=== PATIENT | female | born 1955 | race Caucasian/White ===

== ENCOUNTER 2018-10-21 11:24 | Emergency (ER) | payer BC ==
--- NOTE | 2018-10-21 11:43 | EDM.PDOC ---
ED HPI GENERAL MEDICAL PROBLEM - General Chief Complaint: Upper Extremity Injury/Pain Stated Complaint: PAIN IN BACK AND SHOULDERS Time Seen by Provider: 10/21/18 11:26 History Limitations: Reports: No Limitations - History of Present Illness INITIAL COMMENTS - FREE TEXT/NARRATIVE: Patient comes into the emergency department with plus scapular pain. Patient states that she has been seeing a chiropractor for intermittent shoulder and back pain. However yesterday she ended up slipping and falling landing on her knee in brace herself with her left arm she states that she noticed that her left shoulder area was tender after the fall. She denies having any issues with range of motion but does state that if she touches her shoulder region it is tender to touch. She did go the chiropractor and it was feeling better after the appointment. However today it has become more tender and she's having more muscle spasms in that that region. She denies any numbness or tingling, chest pain, jaw pain, or radiating pain, shortness of breath, dizziness, lightheadedness, blurred vision, loss of consciousness, or hitting her head during or after the original fall. Patient has had issues with muscle spasms in the past that she states it feels exactly like the other muscle spasms before. She is on blood thinners and was recently hospitalized with bleeding concerns. However she does not feel any of that is of concern. She has felt great and has not issues other than the muscle spasms. Onset: Sudden Quality: Reports: Throbbing Severity: Moderate Improves with: Reports: Immobilization Worsens with: Reports: Movement Associated Symptoms: Reports: No Other Symptoms - Related Data Home Meds: Home Meds Cyclobenzaprine [Flexeril] 10 mg PO TID PRN #15 tab 10/21/18 [Rx] Review of Systems - Review of Systems Review Of Systems: See Below Constitutional: Reports: No Symptoms Eyes: Reports: No Symptoms Ears: Reports: No Symptoms Nose: Reports: No Symptoms Mouth/Throat: Reports: No Symptoms Respiratory: Reports: No Symptoms GI/Abdominal: Reports: No Symptoms Genitourinary: Reports: No Symptoms Musculoskeletal: Reports: Shoulder Pain Skin: Reports: No Symptoms Neurological: Reports: No Symptoms ED EXAM, GENERAL - Physical Exam Exam: See Below Exam Limited By: No Limitations General Appearance: Alert, WD/WN, No Apparent Distress Eye Exam: Bilateral Eye: EOMI, PERRL Nose: Normal Inspection, Normal Mucosa Throat/Mouth: Normal Inspection, Normal Lips, Normal Teeth Head: Atraumatic, Normocephalic Neck: Normal Inspection, Supple, Non-Tender, Full Range of Motion Respiratory/Chest: No Respiratory Distress, Lungs Clear, No Accessory Muscle Use Cardiovascular: Normal Peripheral Pulses, Regular Rate, Rhythm Back Exam: Normal Inspection, Muscle Spasm (left scalpular region. pinpoint tenderness with muscle inflammation noted. No crepitis, redness, warmth, or ecchymosis noted. ROM and CMS intact. ) Extremities: Normal Inspection, Normal Range of Motion, No Pedal Edema, Normal Capillary Refill Neurological: Alert, Oriented Psychiatric: Normal Affect, Normal Mood Course - Orders/Labs/Meds Meds: Medications Discontinued Medications Generic Name Dose Route Start Last Admin Trade Name Freq PRN Reason Stop Dose Admin Orphenadrine Citrate 60 mg 10/21/18 11:35 Norflex IM 10/21/18 11:36 NOW STA Departure - Departure Time of Disposition: 12:00 Disposition: Home, Self-Care 01 Condition: Good Clinical Impression: Muscle strain of scapular region Qualifiers: Encounter type: initial encounter Laterality: left Qualified Code(s): S46.912A - Strain of unspecified muscle, fascia and tendon at shoulder and upper arm level, left arm, initial encounter - Discharge Information *PRESCRIPTION DRUG MONITORING PROGRAM REVIEWED*: Not Applicable *COPY OF PRESCRIPTION DRUG MONITORING REPORT IN PATIENT KENZIE: Not Applicable Prescriptions: Cyclobenzaprine [Flexeril] 10 mg PO TID PRN #15 tab PRN Reason: Pain Instructions: Muscle Strain Forms: ED Department Discharge Additional Instructions: 1. rest 2. Message the area of tenderness every hour for a few minutes 3. Place ice or heat over the area for approx 20 mins 3 times a day 4. Can take Tylenol as needed for discomfort 5. Use flexeril as needed for muscle spasms 6. Follow up with Chiropractor early next week 7. Call with any questions or concerns 8. Ensure you are not driving or operate any motor devices while using taking flexeril due to the delayed response time your body may have - Assessment/Plan Assessment:: 1. left scapular strain Plan: 1. Norflex IM injection in the ER 2. Flexeril script sent with the pt 3. Education regarding follow up provided 4. Pt advised to return as needed or if symptoms worsen 5. Pt also advised to follow up with chiropractor as needed to help with the muscle strain 6. All questions and concerns addressed prior to discharge.
== END 2018-10-21 12:13 | disposition home or self-care (01) ==
LOC: VM.ED 11:24
DX: S46.912A Strain of unspecified muscle, fascia and tendon at shoulder and upper arm level, left arm, initial encounter (principal); W01.0XXA Fall on same level from slipping, tripping and stumbling without subsequent striking against object, initial encounter
CPT/HCPCS: 96374; 99283; J2360

== ENCOUNTER 2019-02-26 14:38 | Inpatient (IN) | payer BC ==
[2019-02-26] MEDS ORDERED: Ondansetron 4 MG/2 ML SDV IV PRN (14:51)
[2019-02-26 16:20] LABS: ANION GAP 12.4 mmol/L (10-20)
[2019-02-26] MEDS ORDERED: Famotidine 20 MG Tab PO PRN ×2 (16:31→19:33)
[2019-02-26] MEDS ORDERED: Potassium Chloride 10 MEQ Tab.ER PO ONE (17:04)
[2019-02-26] MEDS: Pantoprazole 40 MG Vial IVPUSH SCH (17:26)
[2019-02-26] MEDS ORDERED: Gabapentin 100 MG Cap PO PRN (19:26)
[2019-02-26] MEDS ORDERED: Melatonin 3 MG Tab PO PRN (19:31)
[2019-02-26] MEDS: Propranolol 20 MG Tab PO SCH (19:56)
[2019-02-26] MEDS ORDERED: Magnesium Oxide 400 MG Tab PO SCH (20:00)
[2019-02-26] MEDS ORDERED: Gabapentin 300 MG Cap PO SCH (20:00)
[2019-02-26] MEDS ORDERED: Melatonin 3 MG Tab PO SCH ×2 (20:00)
[2019-02-26] MEDS ORDERED: Digoxin 125 MCG Tab PO SCH (20:00)
[2019-02-26] MEDS ORDERED: Zolpidem 5 MG Tab PO PRN (21:31)
[2019-02-27] MEDS: Sodium Chloride 0.9% 10 ML Syringe FLUSH PRN ×2 (00:26→05:48)
--- NOTE | 2019-02-27 03:15 | HP ---
CHIEF COMPLAINT: Black stools. HISTORY OF PRESENT ILLNESS: This is a 63-year-old female who had over the last month, dark stools once per day and some anemia. Hemoglobin had finally come up from the 7 range to over 8, but then since Tuesday, she had been feeling a little bit weaker. Having still a dark stool per day, but then explosive black stools this a.m. and 1 small formed black stool since. She came into the clinic for her routine labs. Hemoglobin was down to 6.9. INR was up to 4.3, which she does take for a mechanical mitral valve. She has not had any changes in medications or her Coumadin dose. She had sent a note to me, she was actually coming in for an echo today. She denies any symptoms like shortness of breath. She has had a hard time sleeping, but that has been going on for a while. She goes to sleep with melatonin, but then is up the rest of the night after about 15 minutes. She even took some Benadryl last night. She has not felt any nausea, and in the past when she had GI bleeding, she had nausea. Back in 2015, she had small bowel erosions. She has been on Zantac. She has been on Protonix 20 mg twice daily. In January, she did increase her Bumex up to 3 mg twice daily to help with her edema and her leg swelling has been better. Weight is down 6 pounds since 12 days ago. She had an echo last 09/2017 that showed her EF to be 60%. She also had some clinic visits showing some hemolysis earlier. ALLERGIES: Include latex, rash and itching; oxycodone, face and chest flushing; Tylenol, hives and wheezing; verapamil, anaphylaxis; and ibuprofen, messes with her hiatal hernia and stomach ulcers. MEDICATIONS: Her medication list is reviewed and does include Bumex 3 mg twice daily, digoxin 125 mcg daily, potassium 20 mEq daily, Protonix 20 mg twice daily, Neurontin 300 mg at bedtime and 100 mg 2 times a day as needed for headache, Aldactone 25 mg daily, levothyroxine 100 mcg daily, Inderal 80 mg twice daily, Zantac 150 at bedtime as needed, multivitamin with zinc, calcium, vitamin C, Biofreeze, melatonin, and Imitrex p.r.n. Coumadin with her home dose being recommended to hold today from the anticoagulation clinic; Tuesday, , and Tuesday, she will take 2.5 mg, and she will take 1.25 mg the rest of the week. Amoxicillin as needed for dental work. Iron, ferrous sulfate 325 mg every other day, but on hold since 02/14. Kenalog cream if needed, and magnesium 250 mg at bedtime. PAST MEDICAL HISTORY: Quite complex, does include: 1. Anemia. 2. Atrophic vaginitis. 3. Chronic atrial fibrillation. 4. Essential hypertension. 5. Previous gastrointestinal hemorrhage as stated above. 6. Graves disease status post radioactive treatments in the past, now with hypothyroidism. 7. Hepatitis C, possibly from blood transfusions back in the with her heart surgery. She has been treated with Epclusa in 2017 with viral load undetectable. She had a lot of inflammation of the liver, but not fibrosis. 8. History of mitral valve replacement since having rheumatic fever at age 15. First replacement was in 1979. Then, due to leak, she had a buttress suture correction in 1983 and then subsequently went mechanical prosthesis in 1983, and then in 1984, she had her final valve replacement with a Plummer- Nguyen valve. 9. She has hypokalemia. 10.Long-term anticoagulation. 11.Nocturnal hypoxia. 12.Osteopenia. 13.Hyperlipidemia. 14.Pulmonary hypertension. 15.Restless legs syndrome for which she takes Neurontin. 16.Some aortic stenosis, was mild to moderate. 17.Previous subdural or subarachnoid bleeding earlier this year, resolved. She has not had any transfusions in the last 3 months. PAST SURGICAL HISTORY: Multiple heart surgeries as stated above. Multiple endoscopies, 2012 and 2016. She has had a push enteroscopy and capsule endoscopy. She has had a tubal ligation. She has had hysterectomy and oophorectomy. The patient had a colonoscopy, last in 2016. SOCIAL HISTORY: The patient is . She is a retired teacher. She moved to [place] with her from the [facility]. She is a nonsmoker. She quit drinking wine in mid January. She just drinks a minimal amount, but she thought that this would help with her bleeding. FAMILY HISTORY: The patient's parents are both , they both had colorectal cancer. She has a sister with diabetes, another with multiple sclerosis, a brother with heart problems, another brother with stroke. REVIEW OF SYSTEMS: General: The patient has had some weight loss due to diuresis. She has felt weak, but not dizzy. HEENT: No sore throat. No trouble swallowing. Cardiac: She has not had any chest pain or palpitations. Respiratory: No cough; a couple weeks ago did have a cough. Abdomen: She denies that she has had any abdominal discomfort, but has had the black stools. Otherwise, all systems reviewed and found to be negative unless otherwise stated. PHYSICAL EXAMINATION: Vital Signs: On her admission to the hospital, her vital signs did show a weight of 52.1 kg, temperature 97.6, pulse 56, blood pressure 117/40, respiratory rate 16, and O2 of 100% on room air. General: She is in no acute distress. Heart: Irregular with positive mechanical clicks. Her murmur is appreciated. Lungs: Her lung sounds clear to auscultation bilaterally without crackles or wheezes. Abdomen: Positive bowel sounds. Soft, nondistended, nontender. Extremities: Warm and dry. Just very trace edema. Mental Status: She is alert. She is orientated x3. Skin: Overall, her skin does not appear overly pale, but she reports she is wearing makeup, and she was recently tanned. LABORATORY WORK: Hemoglobin repeated, that was done this morning on admission to the hospital, around 2:30, was 6.1. Her white count 7.3, platelets 167. Sodium 141; potassium 3.4; chloride 99; bicarb 33; BUN 58; creatinine 1.5, which is near her recent baseline, which had been elevated up to 1.5 in the clinic, but prior to that she had been 1.7; glucose 147; calcium 8.6; bilirubin 1.9; AST 85; ALT 17; alkaline phosphatase 64; LDH 1222; albumin 3.4. ASSESSMENT AND PLAN: 1. Acute blood loss anemia, possibly lower gastrointestinal bleed or even a small bowel bleed or upper gastrointestinal bleed. Difficult to tell at this point. Due to elevated INR, we avoided passing an NG tube. This has been a subacute bleed over the last month. We will type and cross the patient and transfuse her 2 units. Given her mechanical valve and the lack of further black stools, I will hold off on any fresh frozen plasma, but we will repeat her INR at 10:00 with her next hemoglobin. She is hemodynamically stable. She is on a beta-tano, which may mask some hypertension. We will repeat all lab work again in the morning. If the patient continues with active bleeding, we will need to transfer her for endoscopy. We are going to avoid any vitamin K unless she were to have severe bleeding. We will also place her on IV Protonix. 2. History of heart failure. I am going to go ahead and hold the Bumex. I will continue her Aldactone. We will monitor her closely. She does have diastolic heart failure. Her ejection fraction is 65%. 3. Mechanical mitral valve. Given supratherapeutic INR, I am going to go ahead and hold the Coumadin. 4. Restless legs syndrome. We will continue her Neurontin. Due to her insomnia, also have Ambien available p.r.n. in addition to her melatonin. 5. Atrial fibrillation. She is on digoxin. Rates are controlled. 6. Hypothyroidism. She will continue levothyroxine. 7. Hypokalemia. We will give her a dose of potassium. We will repeat electrolytes tomorrow. 8. Elevated bilirubin and evidence of hemolysis, probably due to her mechanical valve. We will transfuse her due to the gastrointestinal bleeding concerns, likely get a followup with Hematology as an outpatient. We are also working on [facility] referral for her as well. PLAN: At this point, the patient is admitted for observation care. We would like to transfuse her today, and if she is stable, she will be able to go home for outpatient followup for endoscopy tomorrow. If her condition worsened, she will be transferred to [place] for acute care, or if her stay is prolonged, we will probably place her on acute cares here. The patient is agreeable to this plan. For DVT prophylaxis, she is already therapeutic with Coumadin. She is a code level 1. Greater than 30 minutes spent on this admission process. LILIA: 02/26/2019 21:44:36 MODL: 02/27/2019 03:06:33 /[id number]
[2019-02-27] MEDS: Pantoprazole 40 MG Vial IVPUSH SCH (05:48)
[2019-02-27] MEDS ORDERED: Levothyroxine 100 MCG Tab PO SCH (07:00)
[2019-02-27 07:46] LABS: ANION GAP 10.3 mmol/L (10-20)
[2019-02-27] MEDS: Propranolol 20 MG Tab PO SCH (07:51)
[2019-02-27] MEDS ORDERED: Multivitamin, Stress Formula with Zinc Tab PO SCH (08:00)
[2019-02-27] MEDS ORDERED: Gabapentin 100 MG Cap PO SCH (08:00)
[2019-02-27] MEDS ORDERED: Spironolactone 25 MG Tab PO SCH (08:00)
[2019-02-27] MEDS ORDERED: Potassium Chloride 10 MEQ Tab.ER PO SCH (08:12)
[2019-02-27] MEDS ORDERED: Iopamidol 612 MG/ML 100 ML Bottle IVPUSH ONE (11:00)
--- NOTE | 2019-02-27 13:16 | CT ---
[id number] CT/CT Abdomen Pelvis W IV EXAM: ABDOMEN AND PELVIS CT WITH CONTRAST INDICATION: Gastrointestinal bleeding. COMPARISON: None. DISCUSSION: There is an apparent metallic object in the distal abdominal aorta measuring about 31 x 13 x 1 mm. In the imaged lower chest there is pectus excavatum. Prior sternotomy with partially imaged mitral valve prosthesis. Cardiomegaly. Small to moderate pleural effusion. The liver is heterogeneous in attenuation with lobular contours consistent with cirrhosis. There is evidence of portal hypertension including upper abdominal varices and mild splenomegaly with the spleen measuring 13.5 cm in length. Small volume ascites. Diffuse gallbladder wall thickening may relate to underlying liver disease, but ultrasound or HIDA scan could further evaluate if there is concern for cholecystitis. Vascular coils in the upper abdomen. A mild thick-walled appearance of the splenic flexure of the colon could be from incomplete distention, colitis or the patient's underlying liver disease. There are scattered colonic diverticula without evidence of diverticulitis. The pancreas, adrenal glands, kidneys, small bowel and appendix are normal in appearance. No free fluid. The osseous structures are unremarkable. IMPRESSION: 1. Apparent metallic foreign body within the distal abdominal aorta uncertain etiology. The surrounding aorta otherwise appears normal in appearance. 2. Cirrhosis with portal hypertension including upper abdominal varices, mild splenomegaly, and small ascites. 3. Gallbladder wall thickening likely relating to underlying liver disease. HIDA scan or ultrasound could provide further evaluation. 4. Mild wall thickening near the splenic flexure of the colon which could be from incomplete distention, underlying liver disease or focal colitis. Randy Krause MD 02/27/19 3049 Thank you for allowing us to participate in the care of your patient.
--- NOTE | 2019-02-27 19:35 | DISCH ---
PRIMARY DISCHARGE DIAGNOSES: 1. Acute blood loss anemia secondary to gastrointestinal bleeding, unknown source. 2. Supratherapeutic INR. 3. Chronic diastolic heart failure, ejection fraction 65%. 4. Mechanical mitral valve. 5. Restless legs syndrome, improved after blood transfusion. 6. Atrial fibrillation, on digoxin, rate controlled, paroxysmal. 7. Hypothyroidism, treated. 8. Hypokalemia, replaced orally. 9. Elevated LFTs and bilirubin with some element of hemolysis, but a previous history of hepatitis C treated. Concerned for underlying liver pathology given the findings on the CT scan and her overall complicated medical history. 10.Previous gastrointestinal bleeding, which would include a 2013 Dieulafoy lesion or actively bleeding arteriovenous malformation noted in the lesser curvature of the stomach requiring epinephrine injection with clips. The patient also had an admission in 2015 that required APC for esophagitis and then had a small ulcer and Dieulafoy lesion in the duodenum with cautery and clips, and then later required clips again for a small ulcer noted, but could not be stopped by cautery, an epinephrine, and decision was made that the patient was going to have an embolization for bleeding, which occurred with IR on to the pancreaticoduodenal artery arcade, and then later she had coil embolization to the superior and inferior pancreaticoduodenal arteries. She had a followup EGD then in later that same year. Given history of duodenal ulcer and Helicobacter pylori, she still had more biopsies taken and was recommended to continue on Protonix, which she has been taking 20 mg twice daily. Otherwise, she also has pulmonary hypertension. She has aortic stenosis. She has essential hypertension. She has had some insomnia. Echo performed yesterday showed an ejection fraction of 60% with her Plummer-Nguyen mechanical valve in place. There is some concern for hemolysis due to this valve. There was also some metallic material in her aorta. 11. Cirrhosis and portal hypertension REASON FOR ADMISSION: On the date of admission, this 63-year-old female who has had some black stools off and on over the last month did have a drop in hemoglobin into the 7s, but had recently returned up to 8.4, had a large black stool and a smaller black stool yesterday. Contacted the clinic, was not overly short of breath, but was feeling tired. Hemoglobin was 6.9. She was admitted, typed and crossed. By the time hemoglobin was repeated, she was down to 6.1, she got 2 units. She was up to 7.4 this morning, but repeat hemoglobin this afternoon was back down to 6.9, so another unit was ordered. INR was 4.3. We did not give her any vitamin K or FFP. It did come down to 3.5 today and she had no further melena during her stay. A decision was made to transfer her to [place] for further care. CT was done and did not show any abnormal masses, but did show the concern for some liver disease possibly due to her heart failure versus the hemolysis. Her LDH was about 1200. Renal function was moderate. Her creatinine was 1.4 on discharge. Her BUN was actually 60, so likely this is an upper source of GI bleeding. Bilirubin was 2.1, direct bilirubin 0.54, AST down from 85 to 72. The patient states she was feeling 1000 times better after the blood and actually quite hopeful to go home. However, given her complicated history, decision was made to transfer to [place] for further cares. The patient was upgraded to acute care status for the transfer. The patient also was given IV Protonix during her stay. Her Bumex was held, but she was continued on Aldactone and was given potassium supplements for her low potassium, which was 3.3 this morning. She also takes magnesium supplements. She was denying any chest pain or breathing problems during her stay. PHYSICAL EXAMINATION: Vital Signs: Discharging vitals; temperature 98.8, pulse 65, blood pressure 103/42, respiratory rate 16, O2 of 93% on room air. General: She is in no acute distress. Heart: Irregular rate and rhythm with systolic murmur and positive valvular click. Abdomen: Nondistended, but some mid epigastric tenderness, possibly a hernia in 1 of her previous drain sites from cardiac surgery. Otherwise, bowel sounds are active. The rest of the abdomen is nontender. Lungs: Clear to auscultation bilaterally without crackles or wheezes. Extremities: Warm and dry. She does have some trace edema. Mental Status: She is alert. She is orientated x3. She is answering questions appropriately. DISCHARGE/TRANSFER INSTRUCTIONS: She is going to [place] for further cares. Dr. Foster will accept the patient in transfer. MKA: 02/27/2019 17:32:31 MODL: 02/27/2019 19:26:22 /[id number]
== END 2019-02-27 17:45 | disposition short-term general hospital (02) | DRG 253 ==
LOC: VM.MS 14:44 → OBSVTOIN 16:17
PROVIDERS: ADMIT Internal Medicine; ATTEND Internal Medicine
PROC: 30233N1 Transfusion of Nonautologous Red Blood Cells into Peripheral Vein, Percutaneous Approach (ICD-10-PCS; principal; 2019-02-26)
DX: K92.2 Gastrointestinal hemorrhage, unspecified (principal); D62 Acute posthemorrhagic anemia; D68.2 Hereditary deficiency of other clotting factors; I50.32 Chronic diastolic (congestive) heart failure; I27.20 Pulmonary hypertension, unspecified; K76.6 Portal hypertension; I48.2 Chronic atrial fibrillation; I48.0 Paroxysmal atrial fibrillation; K74.60 Unspecified cirrhosis of liver; G25.81 Restless legs syndrome; E03.9 Hypothyroidism, unspecified; E87.6 Hypokalemia; I10 Essential (primary) hypertension; M85.80 Other specified disorders of bone density and structure, unspecified site; E78.5 Hyperlipidemia, unspecified; I35.0 Nonrheumatic aortic (valve) stenosis; Z95.2 Presence of prosthetic heart valve; Z79.899 Other long term (current) drug therapy; Z79.01 Long term (current) use of anticoagulants; Z88.5 Allergy status to narcotic agent; Z88.8 Allergy status to other drugs, medicaments and biological substances; Z86.19 Personal history of other infectious and parasitic diseases; Z91.040 Latex allergy status; Z79.890 Hormone replacement therapy
CPT/HCPCS: 36415; 36430; 74177; 80053; 82248; 83615; 83735; 85014; 85018; 85025; 85610; 86850; 86900; 86901; 86920; 86922; 94760; 96374; 96376; A9270-GY; C9113; G0378; P9016; Q9967

== ENCOUNTER 2019-03-11 07:50 | Emergency (ER) | payer BC ==
[2019-03-11] MEDS ORDERED: LORazepam 2 MG/ML SDV IM ONE (08:02)
[2019-03-11] MEDS ORDERED: Sodium Chloride 0.9% 10 ML Syringe FLUSH PRN (08:34)
[2019-03-11] MEDS ORDERED: Sodium Chloride 0.9% 1,000 ML IV SCH (08:45)
--- NOTE | 2019-03-11 08:47 | EDM.PDOC ---
ED HPI GENERAL MEDICAL PROBLEM - General Chief Complaint: General Stated Complaint: POSSIBLE REACTION Time Seen by Provider: 03/11/19 07:59 Source of Information: Reports: Patient History Limitations: Reports: No Limitations - History of Present Illness INITIAL COMMENTS - FREE TEXT/NARRATIVE: Pt. presents to ER with . Pt. states that she feels "anxious" and states that her "legs are restless". Pt. was hospitalized at [facility] in [place] and discharged on 02/27/19 with upper GI bleed. Pt. has a history of mechanical mitral valve and is anticoagulated with coumadin. states that the patient woke him in the night complaining of having "restless legs". Pt. denies any trauma to her head. No recent falls. She states that her hands and feet feel crampy and she generally feels weak and unwell. Denies any chest pain or shortness of breath. She has been afebrile and has not been complaining of any chills. Pt. appears to recently have had her bumex increased to 2 mg a day due to peripheral edema after she was fluid resuscitated with blood and fluids for her GI bleed. Pt. last HgB was 8.2-previously had been lower than 5. Pt. states that she was given ativan in the hospital but has not chronically been on either benzodiazepines or opiates. She denies any chest pain or shortness of breath. No difficulty with speech or ambulation. She offers no complaint, other than restless legs and anxiety. Onset: Today Onset Date: 03/11/19 Location: Reports: Generalized - Related Data Allergies Allergy/AdvReac Type Severity Reaction Status Date / Time acetaminophen [From Tylenol] Allergy Cannot Verified 03/11/19 07:57 Remember ibuprofen Allergy Other Verified 03/11/19 07:57 latex Allergy Other Verified 03/11/19 07:57 oxycodone Allergy Cannot Verified 03/11/19 07:57 Remember verapamil Allergy Anaphylactic Verified 03/11/19 08:03 Shock Home Meds: Home Meds Amoxicillin 500 mg PO DAILY PRN 02/26/19 [History] Ascorbic Acid [Vitamin C] 1,000 mg PO DAILY 02/26/19 [History] Bumetanide [Bumex] 3 mg PO BID 02/26/19 [History] Calcium Carbonate [Calcium] 500 mg PO DAILY 02/26/19 [History] Digoxin [Digox] 125 mcg PO BEDTIME 02/26/19 [History] Ferrous Sulfate 325 mg PO DAILY 02/26/19 [History] Gabapentin [Neurontin] 100 mg PO ,02/26/19 [History] Gabapentin [Neurontin] 300 mg PO BEDTIME 02/26/19 [History] Levothyroxine [Synthroid] 112 mcg PO ACBREAKFAST 02/26/19 [History] Magnesium Oxide 250 mg PO BEDTIME 02/26/19 [History] Melatonin 3 mg PO BEDTIME PRN 02/26/19 [History] Melatonin 6 mg PO BEDTIME 02/26/19 [History] Menthol [Biofreeze] 1 applic TP BEDTIME PRN 02/26/19 [History] Multivitamin with Minerals [Multiple Vitamin] 1 tab PO DAILY 02/26/19 [History] Pantoprazole Sodium [Protonix] 20 mg PO BIDMEALS 02/26/19 [History] Potassium Chloride [Klor-Con M20] 20 meq PO BID 02/26/19 [History] Propranolol [Inderal] 80 mg PO BID 02/26/19 [History] Ranitidine [Zantac] 150 mg PO BEDTIME PRN 02/26/19 [History] SUMAtriptan [Imitrex] 25 mg PO Q2HR PRN 02/26/19 [History] Spironolactone [Aldactone] 25 mg PO DAILY 02/26/19 [History] Triamcinolone Acetonide [Kenalog 0.1% Crm] 1 applic TOP BID PRN 02/26/19 [ History] Warfarin [Coumadin] 2.5 mg PO ASDIRECTED 02/26/19 [History] Cetirizine [ZyrTEC] 10 mg PO DAILY 03/11/19 [History] Fluticasone Propionate [Flonase] 1 - 2 sprays NS ASDIRECTED PRN 03/11/19 [ History] Omeprazole Magnesium [Prilosec Otc] 20 mg PO BID 03/11/19 [History] Past Medical History Cardiovascular History: Reports: [place] Gastrointestinal History: Reports: GI Bleed Other Gastrointestinal History: 2 clipped bleeding ulcers Neurological History: Reports: Other (See Below) Other Neuro History: brain bleed Sep 27 2018 - Past Surgical History Cardiovascular Surgical History: Reports: Valve Replacement, Other (See Below) Other Cardiovascular Surgeries/Procedures: 4 open heart surgeries GI Surgical History: Reports: Hernia, Abdominal Social & Family History - Tobacco Use Smoking Status *Q: Unknown Ever Smoked - Caffeine Use Caffeine Use: Reports: None ED ROS GENERAL - Review of Systems Review Of Systems: See Below Constitutional: Reports: No Symptoms HEENT: Reports: No Symptoms Respiratory: Reports: No Symptoms Cardiovascular: Reports: No Symptoms Endocrine: Reports: No Symptoms GI/Abdominal: Reports: Other (recent hospitalization for UGI bleed, no active bleeding at this time.) : Reports: No Symptoms Musculoskeletal: Reports: No Symptoms Skin: Reports: No Symptoms Neurological: Reports: Confusion, Tremors, Weakness, Other (restless legs) Psychiatric: Reports: Agitation, Anxiety, Confusion Hematologic/Lymphatic: Reports: No Symptoms Immunologic: Reports: No Symptoms ED EXAM, GENERAL - Physical Exam Exam: See Below Exam Limited By: No Limitations General Appearance: Anxious, Moderate Distress Eye Exam: Bilateral Eye: EOMI, PERRL Throat/Mouth: Normal Inspection Head: Atraumatic, Normocephalic Neck: Normal Inspection, Supple, Non-Tender, Full Range of Motion Respiratory/Chest: No Respiratory Distress, Lungs Clear, Normal Breath Sounds, No Accessory Muscle Use, Chest Non-Tender Cardiovascular: Normal Peripheral Pulses, No JVD, Irregularly Irregular, Other ( mechanical heart valve) Peripheral Pulses: 4+: Radial (L) GI/Abdominal: Soft, Non-Tender, No Organomegaly, No Distention, No Mass (Female) Exam: Deferred Rectal (Female) Exam: Deferred Back Exam: Normal Inspection, Full Range of Motion Extremities: Normal Inspection, Normal Range of Motion, Non-Tender, Other (2+ edema in lower extremities) Neurological: Alert, CN II-XII Intact, No Motor/Sensory Deficits, Confused Psychiatric: Anxious Skin Exam: Warm, Dry, No Rash, Pallor Course - Vital Signs Last Recorded V/S: Last Vital Signs Temp 36.5 C 03/11/19 10:00 Pulse 99 03/11/19 10:00 Resp 25 H 03/11/19 10:00 BP 128/92 H 03/11/19 10:00 Pulse Ox 99 03/11/19 10:00 - Orders/Labs/Meds Orders: Active Orders 24 hr Category Date Time Status Chest 1V Frontal [CR] Stat Exams 03/11/19 10:48 Ordered Sodium Chloride 0.9% [Normal Saline] 1,000 ml Med 03/11/19 08:45 Active IV ASDIRECTED Sodium Chloride 0.9% [Saline Flush] Med 03/11/19 08:34 Active 10 ml FLUSH ASDIRECTED PRN Peripheral IV Insertion Adult [OM.PC] Routine Oth 03/11/19 08:34 Ordered Medication Orders Sodium Chloride (Normal Saline) 1,000 mls @ 125 mls/hr IV ASDIRECTED WOO Last Admin: 03/11/19 08:40 Dose: 125 mls/hr Sodium Chloride (Saline Flush) 10 ml FLUSH ASDIRECTED PRN PRN Reason: Keep Vein Open Labs: Laboratory Tests 03/11/19 03/11/19 03/11/19 Range/Units 08:25 08:25 08:25 WBC 7.1 (4.0-10.0) x10^3/uL RBC 3.15 L (4.00-5.50) x10^6/uL Hgb 9.6 L D (12.0-16.0) g/dL Hct 31.4 L (33.0-47.0) % MCV 99.7 H D (78.0-93.0) fL MCH 30.5 (26.0-32.0) pg MCHC 30.6 L (32.0-36.0) g/dL RDW Coeff of Inez 19.4 H (10.0-15.0) % Plt Count 210 D (130-400) x10^3/uL Add Manual Diff Yes Neutrophils % (Manual) 79 (50-80) % Band Neutrophils % 1 (0-6) % Lymphocytes % (Manual) 9 L (25-50) % Monocytes % (Manual) 9 (2-11) % Eosinophils % (Manual) 1 (0-4) % Basophils % (Manual) 1 (0-1) % Nucleated RBCs 1 (0-5) /100WBC Hypersegmented Neuts Moderate H Polychromasia Rare Hypochromasia 1+ slight H Poikilocytosis 1+ slight H Anisocytosis 3+ marked H Macrocytosis 2+ moderate H Target Cells Rare Ovalocytes 1+ slight H Helmet Cells Rare Custer Cells Rare Acanthocytes (Spur) 1+ slight H Schistocytes Rare PT 19.6 H D (10.0-12.8) SEC INR 1.7 L (2.0-3.5) Sodium 137 (136-145) mmol/L Potassium 4.6 (3.5-5.1) mmol/L Chloride 97 L (98-107) mmol/L Carbon Dioxide 32 (21-32) mmol/L Anion Gap 12.6 (10-20) mmol/L BUN 22 H D (7-18) mg/dL Creatinine 1.6 H (0.55-1.02) mg/dL Est Cr Clr Drug Dosing TNP Estimated GFR (MDRD) 32 Glucose 133 H (74-106) mg/dL Calcium 9.1 (8.5-10.1) mg/dL Corrected Calcium 9.50 (8.5-10.1) mg/dL Phosphorus 4.6 (2.6-4.7) mg/dL Magnesium 2.0 (1.8-2.4) mg/dL Total Bilirubin 1.4 H (0.2-1.0) mg/dL AST 97 H (15-37) U/L ALT 24 (14-59) U/L Alkaline Phosphatase 76 (46-116) U/L Troponin I (<=0.056) ng/mL NT-Pro-B Natriuret Pep (<=125) pg/mL Total Protein 7.6 (6.4-8.2) g/dL Albumin 3.5 (3.4-5.0) g/dL Globulin 4.1 g/dL Albumin/Globulin Ratio 0.85 TSH, Ultra Sensitive 159.502 H (0.358-3.74) uIU/mL Urine Color (YELLOW) Urine Appearance (CLEAR) Urine pH (5.0-8.0) Ur Specific [place] Urine Protein (NEGATIVE) mg/dL Urine Glucose (UA) (NEGATIVE) mg/dL Urine Ketones (NEGATIVE) mg/dL Urine Occult Blood (NEGATIVE) Urine Nitrite (NEGATIVE) Urine Bilirubin (NEGATIVE) Urine Urobilinogen (0.2) EU/dL Ur Leukocyte Esterase (NEGATIVE) Urine RBC (NOT SEEN) /HPF Urine WBC (NOT SEEN) /HPF Ur Squamous Epith Cells (NEGATIVE) /HPF Amorphous Sediment Urine Bacteria (NEGATIVE) /HPF Hyaline Casts (NEGATIVE) /HPF Urine Mucus (NEGATIVE) /LPF Digoxin (0.90-2.00) ng/mL 03/11/19 03/11/19 03/11/19 Range/Units 08:25 08:25 09:34 WBC (4.0-10.0) x10^3/uL RBC (4.00-5.50) x10^6/uL Hgb (12.0-16.0) g/dL Hct (33.0-47.0) % MCV (78.0-93.0) fL MCH (26.0-32.0) pg MCHC (32.0-36.0) g/dL RDW Coeff of Inez (10.0-15.0) % Plt Count (130-400) x10^3/uL Add Manual Diff Neutrophils % (Manual) (50-80) % Band Neutrophils % (0-6) % Lymphocytes % (Manual) (25-50) % Monocytes % (Manual) (2-11) % Eosinophils % (Manual) (0-4) % Basophils % (Manual) (0-1) % Nucleated RBCs (0-5) /100WBC Hypersegmented Neuts Polychromasia Hypochromasia Poikilocytosis Anisocytosis Macrocytosis Target Cells Ovalocytes Helmet Cells Dora Cells Acanthocytes (Spur) Schistocytes PT (10.0-12.8) SEC INR (2.0-3.5) Sodium (136-145) mmol/L Potassium (3.5-5.1) mmol/L Chloride (98-107) mmol/L Carbon Dioxide (21-32) mmol/L Anion Gap (10-20) mmol/L BUN (7-18) mg/dL Creatinine (0.55-1.02) mg/dL Est Cr Clr Drug Dosing Estimated GFR (MDRD) Glucose (74-106) mg/dL Calcium (8.5-10.1) mg/dL Corrected Calcium (8.5-10.1) mg/dL Phosphorus (2.6-4.7) mg/dL Magnesium (1.8-2.4) mg/dL Total Bilirubin (0.2-1.0) mg/dL AST (15-37) U/L ALT (14-59) U/L Alkaline Phosphatase (46-116) U/L Troponin I < 0.017 (<=0.056) ng/mL NT-Pro-B Natriuret Pep 1191 H (<=125) pg/mL Total Protein (6.4-8.2) g/dL Albumin (3.4-5.0) g/dL Globulin g/dL Albumin/Globulin Ratio TSH, Ultra Sensitive (0.358-3.74) uIU/mL Urine Color Marielena H (YELLOW) Urine Appearance Cloudy H (CLEAR) Urine pH 5.5 (5.0-8.0) Ur Specific [place] 1.020 Urine Protein >=300 H (NEGATIVE) mg/dL Urine Glucose (UA) Negative (NEGATIVE) mg/dL Urine Ketones Trace H (NEGATIVE) mg/dL Urine Occult Blood Moderate H (NEGATIVE) Urine Nitrite Negative (NEGATIVE) Urine Bilirubin Small H (NEGATIVE) Urine Urobilinogen 0.2 (0.2) EU/dL Ur Leukocyte Esterase Negative (NEGATIVE) Urine RBC 0-5 (NOT SEEN) /HPF Urine WBC 0-5 (NOT SEEN) /HPF Ur Squamous Epith Cells Rare (NEGATIVE) /HPF Amorphous Sediment Few Urine Bacteria Not seen (NEGATIVE) /HPF Hyaline Casts Moderate H (NEGATIVE) /HPF Urine Mucus Rare H (NEGATIVE) /LPF Digoxin 0.97 (0.90-2.00) ng/mL Meds: Medications Generic Name Dose Route Start Last Admin Trade Name Freq PRN Reason Stop Dose Admin Sodium Chloride 1,000 mls @ 125 mls/hr 03/11/19 08:45 03/11/19 08:40 Normal Saline IV 125 mls/hr ASDIRECTED WOO Administration Sodium Chloride 10 ml 03/11/19 08:34 Saline Flush FLUSH ASDIRECTED PRN Keep Vein Open Discontinued Medications Generic Name Dose Route Start Last Admin Trade Name Freq PRN Reason Stop Dose Admin Furosemide 40 mg 03/11/19 10:21 03/11/19 10:40 Lasix PO 03/11/19 10:22 Not Given ONETIME ONE Furosemide 40 mg 03/11/19 10:24 03/11/19 10:29 Lasix IV 03/11/19 10:25 40 mg ONETIME ONE Administration Lorazepam 2 mg 03/11/19 08:02 03/11/19 08:07 Ativan IM 03/11/19 08:03 2 mg STAT ONE Administration Departure - Departure Time of Disposition: 11:00 Disposition: DC/Tfer to Acute Hospital 02 Clinical Impression: Flash pulmonary edema Hypothyroid Qualifiers: Hypothyroidism type: acquired Qualified Code(s): E03.9 - Hypothyroidism, unspecified - Discharge Information Forms: ED Department Discharge - Problem List Review Problem List Initiated/Reviewed/Updated: Yes - My Orders Last 24 Hours: My Active Orders 03/11/19 08:34 Sodium Chloride 0.9% [Saline Flush] 10 ml FLUSH ASDIRECTED PRN Peripheral IV Insertion Adult [OM.PC] Routine 03/11/19 08:45 Sodium Chloride 0.9% [Normal Saline] 1,000 ml IV ASDIRECTED 03/11/19 10:48 Chest 1V Frontal [CR] Stat - Assessment/Plan Admission H&P: Please use this note as an admission H&P Last 24 Hours: My Active Orders 03/11/19 08:34 Sodium Chloride 0.9% [Saline Flush] 10 ml FLUSH ASDIRECTED PRN Peripheral IV Insertion Adult [OM.PC] Routine 03/11/19 08:45 Sodium Chloride 0.9% [Normal Saline] 1,000 ml IV ASDIRECTED 03/11/19 10:48 Chest 1V Frontal [CR] Stat Plan: Pt. will be transferred to [facility]. She became more anxious and short of breath during her stay in ER and developed JVD. Her Lungs did not sound overtly wet, but given the patient's history, she was given lasix 60mg IV for presumed flash pulmonary edema. Pro BNP was over 1191. Pt. TSH is 159. Trop I is negative. No significant change in EKG. CT brain is negative for acute pathology. Chest x-ray reveals acute CHF. Remainder of the labs were all within normal limits. UA, electrolytes, and CBC were within normal limits of better than previous. Pt. will be transported to spoke with Dr. Becerra who accepts the patient in transfer.
[2019-03-11 09:33] LABS: ANION GAP 12.6 mmol/L (10-20); CHLORIDE,CL 97 mmol/L (98-107); SODIUM,NA 137 mmol/L (136-145)
--- NOTE | 2019-03-11 09:48 | CT ---
[id number] CT/CT Head WO IV EXAM: CT Head WO IV CLINICAL DATA: CONFUSION. COMPARISON STUDY: December 07, 2018. FINDINGS: No intracranial hemorrhage, extra-axial fluid collection, mass, or acute ischemia. Extensive artifact from the skull base as well as the hands holding the head in position. Within this limitation, there is no evidence of acute extra-axial fluid collection, intracranial hemorrhage, hydrocephalus, ischemia. IMPRESSION: No acute intracranial findings. Kaden Rossi MD 03/11/19 0946 Thank you for allowing us to participate in the care of your patient.
[2019-03-11] MEDS ORDERED: Furosemide 40 MG Tab PO ONE (10:21)
[2019-03-11] MEDS ORDERED: Furosemide 40 MG/4 ML VIAL IV ONE (10:24)
[2019-03-11] MEDS ORDERED: Furosemide 20 MG/2 ML VIAL IV ONE (11:05)
--- NOTE | 2019-03-11 11:11 | CR ---
[id number] RAD/RAD Chest PA or AP 1V EXAM: RAD Chest PA or AP 1V INDICATION: CHF. COMPARISON: None. DISCUSSION: Cardiomegaly and central vascular congestion with bilateral pleural effusions and central opacification. No visible pneumothorax. IMPRESSION: Findings most consistent with acute congestive heart failure exacerbation, described above. Kaden Rossi MD 03/11/19 1110 Thank you for allowing us to participate in the care of your patient.
== END 2019-03-11 12:50 | disposition short-term general hospital (02) ==
LOC: VM.ED 07:50
DX: J81.1 Chronic pulmonary edema (principal); E03.9 Hypothyroidism, unspecified; I25.2 Old myocardial infarction; Z79.01 Long term (current) use of anticoagulants; Z79.899 Other long term (current) drug therapy; Z88.6 Allergy status to analgesic agent; Z91.040 Latex allergy status; Z88.8 Allergy status to other drugs, medicaments and biological substances
CPT/HCPCS: 36415; 70450; 71045; 80053; 80162; 81001; 83735; 83880; 84100; 84443; 84484; 85025; 85610; 96361; 96372; 96374; 96376; 99285; J1940; J2060; J7030; 93005

== ENCOUNTER 2019-07-06 19:36 | Emergency (ER) | payer MEDICARE, BC ==
[2019-07-06] MEDS ORDERED: Ondansetron 4 MG/2 ML SDV ONE (20:06)
[2019-07-06 20:47] LABS: CHLORIDE,CL 96 mmol/L (98-107); SODIUM,NA 135 mmol/L (136-145)
[2019-07-06 20:48] LABS: ANION GAP 14.3 mmol/L (10-20)
--- NOTE | 2019-07-06 20:49 | EDM.PDOC ---
ED HPI GENERAL MEDICAL PROBLEM - General Stated Complaint: NOT FEELING WELL Time Seen by Provider: 07/06/19 19:45 - History of Present Illness INITIAL COMMENTS - FREE TEXT/NARRATIVE: Pt presents states not feeling well, was nauseated no vomiting. PT with hx of anemia / gi bleed, hgb at 7.5 on Tuesday.PT states she is feeling better now. - Related Data Allergies Allergy/AdvReac Type Severity Reaction Status Date / Time verapamil Allergy Severe Anaphylactic Verified 05/29/19 13:13 Shock acetaminophen [From Tylenol] Allergy Hives Verified 05/04/19 10:30 ibuprofen Allergy Other Verified 05/04/19 10:30 latex Allergy Hives Verified 05/04/19 10:30 oxycodone Allergy Hives Verified 05/04/19 10:30 Home Meds: Home Meds Amoxicillin 500 mg PO DAILY PRN 02/26/19 [History] Ascorbic Acid [Vitamin C] 1,000 mg PO DAILY 02/26/19 [History] Calcium Carbonate [Calcium] 500 mg PO DAILY 02/26/19 [History] Gabapentin [Neurontin] 300 mg PO BEDTIME 02/26/19 [History] Levothyroxine [Synthroid] 137 mcg PO ACBREAKFAST 02/26/19 [History] Magnesium Oxide 250 mg PO BEDTIME 02/26/19 [History] Melatonin 3 mg PO BEDTIME PRN 02/26/19 [History] Melatonin 6 mg PO BEDTIME 02/26/19 [History] Menthol [Biofreeze] 1 applic TP BEDTIME PRN 02/26/19 [History] Multivitamin with Minerals [Multiple Vitamin] 1 tab PO DAILY 02/26/19 [History] Potassium Chloride [Klor-Con M20] 60 meq PO BID 02/26/19 [History] Propranolol [Inderal] 80 mg PO BID 02/26/19 [History] SUMAtriptan [Imitrex] 25 mg PO Q2HR PRN 02/26/19 [History] Triamcinolone Acetonide [Kenalog 0.1% Crm] 1 applic TOP BID PRN 02/26/19 [ History] Warfarin [Coumadin] 2.5 mg PO ASDIRECTED 02/26/19 [History] Cetirizine [ZyrTEC] 10 mg PO DAILY 03/11/19 [History] Fluticasone Propionate [Flonase] 1 - 2 sprays NS ASDIRECTED PRN 03/11/19 [ History] Omeprazole Magnesium [Prilosec Otc] 40 mg PO BID 03/11/19 [History] Dextran 70/Hypromellose [Artificial Tears] 1 drop EYEBOTH ASDIRECTED PRN [History] Dextromethorphan/guaiFENesin [Robitussin DM] 5 ml PO DAILY PRN 05/04/19 [History ] hydrALAZINE [Apresoline] 12.5 mg PO Q8H 05/04/19 [History] rOPINIRole HCl [Requip] 0.25 mg PO BEDTIME PRN 05/04/19 [History] Bumetanide 4 mg PO BID 06/20/19 [History] Past Medical History HEENT History: Reports: Other (See Below) Other HEENT History: oral aphthous ulcer Cardiovascular History: Reports: Afib, Heart Failure, High Cholesterol, Hypertension, [place], Other (See Below) Other Cardiovascular History: aortic valve insufficiency. rheumatic aortic stenosis. nocturnal hypoxemia. lower ext. edema Respiratory History: Reports: Other (See Below) Other Respiratory History: pulmonary htn Gastrointestinal History: Reports: GI Bleed Other Gastrointestinal History: 2 clipped bleeding ulcers, erosive gastropathy, peptic ulcer Genitourinary History: Reports: Other (See Below) Other Genitourinary History: atrophic vaginitis Musculoskeletal History: Reports: Back Pain, Chronic, Other (See Below) Other Musculoskeletal History: ganglion cyst. tenosynovitis, wrist. left hand pain. osteopenia Neurological History: Reports: Other (See Below) Other Neuro History: brain bleed Sep 27 2018. subdural hematoma. RLS Endocrine/Metabolic History: Reports: Hypothyroidism, Other (See Below) Other Endocrine/Metabolic History: hypokalemia. graves disease Hematologic History: Reports: Anemia - Infectious Disease History Infectious Disease History: Reports: Hepatitis C - Past Surgical History Cardiovascular Surgical History: Reports: Valve Replacement, Other (See Below) Other Cardiovascular Surgeries/Procedures: 4 open heart surgeries GI Surgical History: Reports: Hernia, Abdominal Female Surgical History: Reports: Tubal Ligation Social & Family History - Caffeine Use Caffeine Use: Reports: None ED ROS GENERAL - Review of Systems Review Of Systems: See Below Constitutional: Reports: Weakness HEENT: Reports: No Symptoms Respiratory: Reports: No Symptoms Cardiovascular: Reports: No Symptoms Endocrine: Reports: No Symptoms GI/Abdominal: Reports: Nausea : Reports: No Symptoms Musculoskeletal: Reports: No Symptoms Skin: Reports: No Symptoms Neurological: Reports: No Symptoms Psychiatric: Reports: No Symptoms Hematologic/Lymphatic: Reports: No Symptoms Immunologic: Reports: No Symptoms ED EXAM, GENERAL - Physical Exam Exam: See Below Free Text/Narrative:: Pt presents c/o nausea and weakenss, pt states she is feeling better at this time. on 07/04/19 hemoglobin was at 7.5 today hemoglobin is at 6.5, discussed with pt will draw labs today and pt will return in the am for blood transfusion 2 units. General Appearance: Alert, WD/WN Eye Exam: Bilateral Eye: PERRL Ears: Normal External Exam Nose: Normal Inspection, Normal Mucosa, No Blood Throat/Mouth: Normal Inspection Head: Atraumatic, Normocephalic Neck: Normal Inspection, Supple, Non-Tender Respiratory/Chest: No Respiratory Distress, Lungs Clear, Normal Breath Sounds, No Accessory Muscle Use, Chest Non-Tender Cardiovascular: Normal Peripheral Pulses, No Edema, No Gallop GI/Abdominal: Normal Bowel Sounds, Soft, Non-Tender, No Organomegaly, No Distention, No Abnormal Bruit, No Mass, Pelvis Stable Extremities: Normal Inspection, Normal Range of Motion, Non-Tender, No Pedal Edema, Normal Capillary Refill Neurological: Alert, Oriented Psychiatric: Normal Affect, Normal Mood Skin Exam: Warm, Dry, Intact Course - Orders/Labs/Meds Orders: Active Orders 24 hr Category Date Time Status RED BLOOD CELLS LP [BBK] Stat Lab 07/06/19 20:58 Ordered TYPE AND SCREEN [BBK] Stat Lab 07/06/19 20:58 Ordered Blood Transfusion Reflex Orders [OM.PC] Routine Oth 07/06/19 20:58 Ordered Labs: Laboratory Tests 07/06/19 07/06/19 Range/Units 19:55 19:55 WBC 9.1 (4.0-10.0) x10^3/uL RBC 2.00 L (4.00-5.50) x10^6/uL Hgb 6.5 L* D (12.0-16.0) g/dL Hct 21.3 L (33.0-47.0) % MCV 106.5 H D (78.0-93.0) fL MCH 32.5 H (26.0-32.0) pg MCHC 30.5 L (32.0-36.0) g/dL RDW Coeff of Inez 18.3 H (10.0-15.0) % Plt Count 230 (130-400) x10^3/uL Neut % (Auto) 81.4 H (50.0-80.0) % Lymph % (Auto) 6.8 L (25.0-50.0) % [place] % (Auto) 9.6 (2.0-11.0) % Eos % (Auto) 1.3 (0.0-4.0) % Baso % (Auto) 0.9 (0.2-1.2) % Sodium 135 L (136-145) mmol/L Potassium 4.3 (3.5-5.1) mmol/L Chloride 96 L (98-107) mmol/L Carbon Dioxide 29 (21-32) mmol/L Anion Gap 14.3 (10-20) mmol/L BUN 55 H (7-18) mg/dL Creatinine 1.6 H (0.55-1.02) mg/dL Est Cr Clr Drug Dosing TNP Estimated GFR (MDRD) 32 Glucose 140 H (74-106) mg/dL Calcium 8.4 L (8.5-10.1) mg/dL Meds: Medications Discontinued Medications Generic Name Dose Route Start Last Admin Trade Name Radhamesq PRN Reason Stop Dose Admin Ondansetron HCl Confirm 07/06/19 20:06 07/06/19 20:03 Zofran Administered 07/06/19 20:07 4 mg Dose Administration 4 mg .ROUTE .STK-MED ONE Departure - Departure Time of Disposition: 21:10 Disposition: Home, Self-Care 01 Condition: Good Clinical Impression: Low hemoglobin - Discharge Information Referrals: Lorrie Estrada DO [Primary Care Provider] - Care Plan Goals: Return in the am for 2 unit blood transfusion. - My Orders Last 24 Hours: My Active Orders 07/06/19 20:58 RED BLOOD CELLS LP [BBK] Stat TYPE AND SCREEN [BBK] Stat Blood Transfusion Reflex Orders [OM.PC] Routine - Assessment/Plan Last 24 Hours: My Active Orders 07/06/19 20:58 RED BLOOD CELLS LP [BBK] Stat TYPE AND SCREEN [BBK] Stat Blood Transfusion Reflex Orders [OM.PC] Routine
== END 2019-07-06 21:18 | disposition home or self-care (01) ==
LOC: VM.ED 19:36
DX: D64.9 Anemia, unspecified (principal); I11.0 Hypertensive heart disease with heart failure; I50.9 Heart failure, unspecified; I48.91 Unspecified atrial fibrillation; I25.2 Old myocardial infarction; Z79.899 Other long term (current) drug therapy; Z88.8 Allergy status to other drugs, medicaments and biological substances; Z88.6 Allergy status to analgesic agent; Z91.040 Latex allergy status
CPT/HCPCS: 36415; 80048; 85025; 86850; 86900; 86901; 86920; 86922; 99283; 99284-GF; J2405

== ENCOUNTER 2021-02-07 14:20 | Emergency (ER) | payer MEDICARE, BC ==
--- NOTE | 2021-02-07 15:05 | EDM.PDOC ---
ED HPI GENERAL MEDICAL PROBLEM - General Stated Complaint: SOB;PAIN R SIDE Time Seen by Provider: 02/07/21 14:50 Source of Information: Reports: Patient History Limitations: Reports: No Limitations - History of Present Illness INITIAL COMMENTS - FREE TEXT/NARRATIVE: Patient has a signficant cardiac history with three valves replaced in the last year. SHe has had a complication of right sided pleural effusion multiple times. She is maintained on a blood thinner. She is taking this faithfully. This week while in cardiac rehab she was told she had decreased breath sounds on the right so was sent to [place] to cardiology for a check up yesterday. She had labs, was told her INR was good and had a thoracentesis on the right with 500 ml of bloody fluid out. She states this one was painful, as the ones in the past were not. She did not have a post tap x-ray.She went home and was feeling fine. Today all day she has not felt well all day, increased right chest discomfort, shortness of breath. Took her regular medications. no fevers Duration: Getting Worse Associated Symptoms: Reports: Shortness of Breath Chest Pain Right Side Pain Score (Numeric/FACES): 4 - Related Data Allergies Allergy/AdvReac Type Severity Reaction Status Date / Time verapamil Allergy Severe Anaphylactic Verified 02/07/21 16:30 Shock acetaminophen [From Tylenol] Allergy Hives Verified 02/07/21 16:30 latex Allergy Hives Verified 02/07/21 16:30 oxycodone Allergy Hives Verified 02/07/21 16:30 ibuprofen AdvReac Other Verified 02/07/21 16:30 Home Meds: Home Meds Ascorbic Acid [C-500] 500 mg DAILY 11/21/19 [History] Bumetanide 4 mg BID 11/21/19 [History] Calcium Carbonate/Vitamin D3 [Calcium 500-Vit D3 200 Tablet] 3 tab DAILY 11/21/19 [History] Digoxin 125 mcg DAILY 11/21/19 [History] Docusate Sodium/Sennosides [Senokot-S] 1 tab BID PRN 11/21/19 [History] Fluticasone Propionate [Flonase] 2 spray ASDIRECTED PRN 11/21/19 [History] Gabapentin [Neurontin] 100 mg DAILY PRN 11/21/19 [History] Gabapentin [Neurontin] 300 mg BEDTIME 11/21/19 [History] Levothyroxine 175 mcg DAILY 11/21/19 [History] Magnesium Oxide 250 mg BEDTIME 11/21/19 [History] Melatonin/Pyridoxine HCl (B6) [Melatonin 3 mg Tablet] 6 mg BEDTIME 11/21/19 [History] Metoprolol Succinate 25 mg DAILY 11/21/19 [History] Multivitamin [Multi-Vitamin Daily] 1 tab DAILY 11/21/19 [History] Omeprazole 20 mg BID 11/21/19 [History] Potassium Chloride 60 meq BID 11/21/19 [History] Spironolactone 50 mg DAILY 11/21/19 [History] Warfarin Sodium 2 mg ASDIRECTED 11/21/19 [History] Zinc Sulfate 220 mg DAILY 11/21/19 [History] calcitrioL [Calcitriol] 0.25 mcg DAILY 11/21/19 [History] rOPINIRole [Requip] 0.25 mg BEDTIME 11/21/19 [History] Past Medical History HEENT History: Reports: Other (See Below) Other HEENT History: oral aphthous ulcer Cardiovascular History: Reports: Afib, Heart Failure, High Cholesterol, Hypertension, [place], Other (See Below) Other Cardiovascular History: aortic valve insufficiency. rheumatic aortic stenosis. nocturnal hypoxemia. lower ext. edema Respiratory History: Reports: Other (See Below) Other Respiratory History: pulmonary htn Gastrointestinal History: Reports: GI Bleed Other Gastrointestinal History: 2 clipped bleeding ulcers, erosive gastropathy, peptic ulcer Genitourinary History: Reports: Other (See Below) Other Genitourinary History: atrophic vaginitis Musculoskeletal History: Reports: Back Pain, Chronic, Other (See Below) Other Musculoskeletal History: ganglion cyst. tenosynovitis, wrist. left hand pain. osteopenia Neurological History: Reports: Other (See Below) Other Neuro History: brain bleed Sep 27 2018. subdural hematoma. RLS Endocrine/Metabolic History: Reports: Hypothyroidism, Other (See Below) Other Endocrine/Metabolic History: hypokalemia. graves disease Hematologic History: Reports: Anemia - Infectious Disease History Infectious Disease History: Reports: Hepatitis C - Past Surgical History Cardiovascular Surgical History: Reports: Valve Replacement, Other (See Below) Other Cardiovascular Surgeries/Procedures: 4 open heart surgeries GI Surgical History: Reports: Hernia, Abdominal Female Surgical History: Reports: Tubal Ligation Social & Family History - Caffeine Use Caffeine Use: Reports: None ED ROS GENERAL - Review of Systems Review Of Systems: See Below Constitutional: Reports: Weakness, Fatigue HEENT: Reports: No Symptoms Respiratory: Reports: Shortness of Breath, Pleuritic Chest Pain. Denies: Cough Cardiovascular: Reports: Dyspnea on Exertion Endocrine: Reports: Fatigue GI/Abdominal: Reports: No Symptoms, Nausea. Denies: Abdominal Pain, Hematemesis, Hematochezia : Reports: No Symptoms Musculoskeletal: Reports: No Symptoms Skin: Reports: No Symptoms Neurological: Reports: No Symptoms Psychiatric: Reports: No Symptoms ED EXAM, GENERAL - Physical Exam Exam: See Below Exam Limited By: No Limitations General Appearance: Alert, Mild Distress Eye Exam: Bilateral Eye: EOMI, Normal Inspection, PERRL Ears: Normal External Exam Nose: Normal Inspection Throat/Mouth: Normal Inspection, Normal Lips, Normal Teeth Head: Atraumatic Neck: Full Range of Motion Respiratory/Chest: Decreased Breath Sounds (right), Crackles, Accessory Muscle Use, Prolonged Expiration Cardiovascular: Tachycardia, Systolic Murmur, Other (click of valve) GI/Abdominal: Normal Bowel Sounds Extremities: Pedal Edema Neurological: Alert, Oriented #1 Interpretation EKG Date: 02/07/21 Time: 14:35 Rhythm: A-Fib EKG Interpretation Comments: baseline wander, PVC frequent, Q waves in II,III, avf Course - Vital Signs Last Recorded V/S: Last Vital Signs Temp 36.8 C 02/07/21 14:30 Pulse 103 H 02/07/21 14:30 Resp 19 02/07/21 14:30 BP 119/58 L 02/07/21 14:30 Pulse Ox 94 L 02/07/21 14:30 - Orders/Labs/Meds Labs: Laboratory Tests 02/07/21 Range/Units 15:35 Hgb 11.1 L D (12.0-16.0) g/dL Hct 32.2 L (33.0-47.0) % - Radiology Interpretation Free Text/Narrative:: increased parenchymal opacification on the right superimposed on a a loculated appearing pleural effusion that was present yesterday ( note film compared to chest x-ray yesterday prior to thoracentesis). interpreted by radiology CT chest wtihout contrast with heterogenous and loculated pleural effusion suggesting hemothorax. linear band of increased density iin the anterior aspect of the right lung base is nonspecific and possibly an area of acute blood products /bleeding versus aspirated contrast material. interpreted by radiology - Re-Assessments/Exams Free Text/Narrative Re-Assessment/Exam: 02/07/21 15:18 patient has o2 sats of 94% but working harder than normal to breathe. decreased breath sounds on the right. review of the chest x-ray looks like she loculates her pleural effusion to the lateral margin of the right lung. appears to be more than prior to her tap yesterday. Will send to [facility] ,discuss with cardiology/interventional radiology. check hemoglobin 02/07/21 15:50 Call to [facility] call, discussed with interventional radiology, concern for rapidly expanding pleural effusion after tap yesterday. INR was 2.4 yesterday and therapeutic. discussed with DR. Brown whom is familiar with the person, asks for a non-contrast ct chest and then transfer to hospitalist service. Patient continue to saturate on room air at 94%, heart rate 96, good pressures. 02/07/21 16:03 02/07/21 16:[address] [place] [address] Triston minor as hospitalist to accept. Appears to have acute blood products in chest. continues to be hemodynamically stable, heart rate94 sats on room air 94%, respiratory rate 27. blood pressure 115/53. Patient refuses EMS transfer. Departure - Departure Time of Disposition: 16:53 Disposition: DC/Tfer to [facility] 02 Clinical Impression: Pleural effusion, Hemothorax after procedure - Discharge Information *PRESCRIPTION DRUG MONITORING PROGRAM REVIEWED*: Not Applicable *COPY OF PRESCRIPTION DRUG MONITORING REPORT IN PATIENT KENZIE: Not Applicable Referrals: Lorrie Estrada, [Primary Care Provider] - Forms: Interfacility Transfer EMTALA Additional Instructions: Go directly to [facility] for admission Sepsis Event Note (ED) - Focused Exam Vital Signs: Vital Signs Temp Pulse Resp BP Pulse Ox 02/07/21 14:30 36.8 C 103 H 19 119/58 L 94 L
--- NOTE | 2021-02-07 15:42 | CR ---
[id number] RAD/RAD Chest PA And Lateral EXAM: RAD Chest PA And Lateral INDICATION: POST THORACENTESIS, CHEST PAIN, SHORTNESS OF BREATH. COMPARISON: February 06, 2021. DISCUSSION/IMPRESSION: Increased parenchymal opacification on the right superimposed on a loculated appearing pleural effusion that was present yesterday. No pneumothorax. Left lung remains clear. Kaden Rossi MD 02/07/21 [id number] Thank you for allowing us to participate in the care of your patient.
--- NOTE | 2021-02-07 16:46 | CT ---
[id number] CT/CT Chest WO IV EXAM: CT Chest WO IV CLINICAL DATA: INCREASED SHORTNESS OF BREATH, THORACENTESIS 02-06-2021 COMPARISON STUDY: February 07, 2021. FINDINGS: Lungs: Loculated pleural fluid collection with heterogeneous density. Hyperdensity intermixed within the pleural fluid suggests hemothorax. Linear band of increased density projecting over the anterior aspect of the right lung base. This is nonspecific. This could represent small area of active bleeding/acute blood products versus aspirated contrast material. No recent CT examination for comparison or correlation. Subsegmental atelectasis in the right lung most prominent in the lower middle lobes. Mediastinum: No mediastinal or hilar lymphadenopathy. Heart and great vessels: Cardiomegaly with massive enlargement of the left atrium. Postsurgical change from prosthetic aortic and mitral valve placement. Bones: Dextro scoliosis and kyphosis. Pectus deformity of the anterior chest wall. Upper abdomen: Unremarkable. IMPRESSION: Heterogeneous and loculated pleural effusion suggesting hemothorax. Linear band of increased density in the anterior aspect of the right lung base is nonspecific and possibly an area of acute blood products/bleeding versus aspirated contrast material. No pneumothorax. Other findings are described above. Kaden Rossi MD 02/07/21 [id number] Thank you for allowing us to participate in the care of your patient.
== END 2021-02-07 17:20 | disposition short-term general hospital (02) ==
LOC: VM.ED 14:20
DX: J94.2 Hemothorax (principal); J90 Pleural effusion, not elsewhere classified; E78.00 Pure hypercholesterolemia, unspecified; I11.0 Hypertensive heart disease with heart failure; I50.9 Heart failure, unspecified; I25.2 Old myocardial infarction; Z88.8 Allergy status to other drugs, medicaments and biological substances; E03.9 Hypothyroidism, unspecified; I48.91 Unspecified atrial fibrillation; Z91.040 Latex allergy status; Z88.5 Allergy status to narcotic agent; Z79.01 Long term (current) use of anticoagulants; Z79.899 Other long term (current) drug therapy
CPT/HCPCS: 36415; 71046; 71250; 85014; 85018; 93010; 99284; 99285-25